=== PATIENT | male | born 1955 | race Two or more races ===

== ENCOUNTER 2018-03-11 10:11 | Outpatient (CLI) | payer OTHER | END 2018-03-11 10:33 | disposition home or self-care (01) | LOC: SONOGRAMA 10:11 | DX: E04.1 Nontoxic single thyroid nodule (principal) ==

== ENCOUNTER 2018-04-04 06:00 | Day surgery (SDC) | payer OTHER | END 2018-04-04 09:15 | disposition home or self-care (01) | LOC: AMB-ENDOS 06:00 | DX: K51.811 Other ulcerative colitis with rectal bleeding (principal); K64.1 Second degree hemorrhoids ==

== ENCOUNTER 2018-05-23 09:47 | Emergency (ER) | payer OTHER ==
[~2018-05-23] VITALS: Ht 170.2 cm; Wt 63.5 kg
[2018-05-23] MEDS ORDERED: CADUET 5 MG-201 EACH PO (10:12)
[2018-05-23] MEDS ORDERED: JANUVIA100 MG PO (10:12)
[2018-05-23] MEDS ORDERED: TAMS0.4C PO (10:12)
== END 2018-05-23 14:36 | disposition home or self-care (01) ==
LOC: ER 09:47
DX: I95.89 Other hypotension (principal)

== ENCOUNTER 2018-07-10 11:41 | Inpatient (IN) | payer OTHER ==
[~2018-07-10] VITALS: Ht 170.2 cm; Wt 57.6 kg
[~2018-07-10 11:41] MED LIST: CADUET 5 MG-201 EACH PO; JANUVIA100 MG PO; TAMS0.4C PO
[2018-07-18] MEDS ORDERED: PREDNISONE20 MG PO (08:01)
[2018-07-18] MEDS ORDERED: DELZICOL400 M1 PO (08:01)
[2018-07-18] MEDS ORDERED: PEPCID20 MG PO (08:02)
== END 2018-07-18 09:02 | disposition home or self-care (01) | DRG 387 ==
LOC: ER 11:41 → MEDJ 19:48
PROC: BW21ZZZ Computerized Tomography (CT Scan) of Abdomen and Pelvis (ICD-10-PCS; principal; 2018-07-10)
PROC: 30233N1 Transfusion of Nonautologous Red Blood Cells into Peripheral Vein, Percutaneous Approach (ICD-10-PCS; 2018-07-10)
PROC: BW30YZZ Magnetic Resonance Imaging (MRI) of Abdomen using Other Contrast (ICD-10-PCS; 2018-07-11)
PROC: BW30ZZZ Magnetic Resonance Imaging (MRI) of Abdomen (ICD-10-PCS; 2018-07-11)
DX: K51.811 Other ulcerative colitis with rectal bleeding (principal); D50.0 Iron deficiency anemia secondary to blood loss (chronic); E11.69 Type 2 diabetes mellitus with other specified complication; I10 Essential (primary) hypertension; K64.3 Fourth degree hemorrhoids
CPT/HCPCS: 74182

== ENCOUNTER 2018-09-19 13:30 | Day surgery (SDC) | payer OTHER ==
[~2018-09-19 13:30] MED LIST changes: +DELZICOL400 M1 PO; +PEPCID20 MG PO; +PREDNISONE20 MG PO
== END 2018-09-19 17:30 | disposition home or self-care (01) ==
LOC: AMB-ENDOS 13:30
DX: K52.89 Other specified noninfective gastroenteritis and colitis (principal)

== ENCOUNTER 2019-01-12 03:35 | Inpatient (IN) | payer OTHER ==
[~2019-01-12] VITALS: Ht 172.7 cm; Wt 63.5 kg
[2019-01-12] MEDS ORDERED: LANTUS SOL100 UNIT/1 (04:10)
[2019-01-12] MEDS ORDERED: HUMALOG100 UNIT/1 (04:10)
[2019-01-23] MEDS ORDERED: DELTASONE20 MG PO (17:53)
== END 2019-01-23 19:53 | disposition home or self-care (01) | DRG 386 ==
LOC: ER 03:35 → MEDI 07:57
PROVIDERS: ADMIT Student in an Organized Health Care Education/Training Program
PROC: BW21ZZZ Computerized Tomography (CT Scan) of Abdomen and Pelvis (ICD-10-PCS; 2019-01-12)
PROC: 30233N1 Transfusion of Nonautologous Red Blood Cells into Peripheral Vein, Percutaneous Approach (ICD-10-PCS; principal; 2019-01-13)
PROC: 02HV33Z Insertion of Infusion Device into Superior Vena Cava, Percutaneous Approach (ICD-10-PCS; 2019-01-15)
PROC: 4A12X4Z Monitoring of Cardiac Electrical Activity, External Approach (ICD-10-PCS; 2019-01-16)
DX: K51.811 Other ulcerative colitis with rectal bleeding (principal); E27.49 Other adrenocortical insufficiency; I95.89 Other hypotension; K64.2 Third degree hemorrhoids; E11.65 Type 2 diabetes mellitus with hyperglycemia; D64.89 Other specified anemias; D69.59 Other secondary thrombocytopenia; K57.30 Diverticulosis of large intestine without perforation or abscess without bleeding; I25.10 Atherosclerotic heart disease of native coronary artery without angina pectoris; I10 Essential (primary) hypertension; N40.0 Benign prostatic hyperplasia without lower urinary tract symptoms; Z79.52 Long term (current) use of systemic steroids; Z86.73 Personal history of transient ischemic attack (TIA), and cerebral infarction without residual deficits

== ENCOUNTER 2019-02-06 00:24 | Inpatient (IN) | payer OTHER ==
[~2019-02-06] VITALS: Ht 170.2 cm; Wt 63.5 kg
[~2019-02-06 00:24] MED LIST changes: +DELTASONE20 MG PO; +HUMALOG100 UNIT/1; +LANTUS SOL100 UNIT/1
--- NOTE | 2019-02-06 00:40 | NUR ---
SE RECIBE PTE MASCULINO ALERTA Y ORIENTADO X3,ACOMPANADO DE FAMILIAR,LLEGA EN AMBULANCIA REFIERE SANGRADO RECTAL ES NOTIFICADO A Y SHOSHANA REFIERE 1 EPISODIO DE SANGRADO.ES COLOCADO EN ALETA #6
--- NOTE | 2019-02-06 01:15 | NUR ---
SE ORIENTA PTE SOBRE TX MEDICO EL CUAL REFIERE ENTENDER.SE EXTRAEN MUESTRAS BAJO MEDIDAS ASEPTICAS,SE CANALIZA Y SE ADMINISTRA MEDICAMENTO [facility] ORDEN MEDICA.
--- NOTE | 2019-02-06 06:34 | NUR ---
SE NANCY [facility]NA ORDEN MEDICA TUBOS PILOTOS PARA 2 UNIDADES DE PRBC. SE EDUCA A PTE Y FAMILIAR. ESPOSA FIRMA CONSENTIMIENTO DE TRANSFUSION DE MANINDER. SE HABLA CON JONES DE BANCO DE MANINDER PARA NOTIFICARLE ORDEN DE TRANSFUNDIR 2 UNIDADES DE PRBC Y TUBOS PILOTOS A LAS 6:30AM.
[2019-02-06] MEDS ORDERED: HUMALOG KW100 UNIT/1 (08:28)
[2019-02-06] MEDS ORDERED: MESALAMINE800 MG PO (08:28)
[2019-02-06] MEDS ORDERED: NORVASC2.5 MG PO (08:29)
== END 2019-03-05 07:45 | disposition expired | DRG 329 ==
LOC: ER 00:24 → ICU 07:16 → ICU-2 07:16 → ICU 02-08 13:54 → SURH 02-20 16:57 → SURG 02-24 11:22 → MEDI 03-03 19:36 → ICU 03-04 13:44
PROVIDERS: Colon & Rectal Surgery; ADMIT Student in an Organized Health Care Education/Training Program
PROC: 02HV33Z Insertion of Infusion Device into Superior Vena Cava, Percutaneous Approach (ICD-10-PCS; 2019-02-06)
PROC: B246ZZZ Ultrasonography of Right and Left Heart (ICD-10-PCS; 2019-02-09)
PROC: 30233R1 Transfusion of Nonautologous Platelets into Peripheral Vein, Percutaneous Approach (ICD-10-PCS; 2019-02-10)
PROC: 0T9B70Z Drainage of Bladder with Drainage Device, Via Natural or Artificial Opening (ICD-10-PCS; 2019-02-12)
PROC: 0D1B4Z4 Bypass Ileum to Cutaneous, Percutaneous Endoscopic Approach (ICD-10-PCS; 2019-02-13)
PROC: 0DTF4ZZ Resection of Right Large Intestine, Percutaneous Endoscopic Approach (ICD-10-PCS; principal; 2019-02-13 10:00)
PROC: 30233N1 Transfusion of Nonautologous Red Blood Cells into Peripheral Vein, Percutaneous Approach (ICD-10-PCS; 2019-02-15)
PROC: BW28YZZ Computerized Tomography (CT Scan) of Head using Other Contrast (ICD-10-PCS; 2019-02-19)
PROC: B54NZZZ Ultrasonography of Left Upper Extremity Veins (ICD-10-PCS; 2019-02-19)
PROC: 4A12X4Z Monitoring of Cardiac Electrical Activity, External Approach (ICD-10-PCS; 2019-02-20)
PROC: 4A033R1 Measurement of Arterial Saturation, Peripheral, Percutaneous Approach (ICD-10-PCS; 2019-02-25)
PROC: BB24ZZZ Computerized Tomography (CT Scan) of Bilateral Lungs (ICD-10-PCS; 2019-02-26)
PROC: 3E0F7GC Introduction of Other Therapeutic Substance into Respiratory Tract, Via Natural or Artificial Opening (ICD-10-PCS; 2019-02-26)
PROC: 0BH17EZ Insertion of Endotracheal Airway into Trachea, Via Natural or Artificial Opening (ICD-10-PCS; 2019-03-04)
PROC: 5A1935Z Respiratory Ventilation, Less than 24 Consecutive Hours (ICD-10-PCS; 2019-03-04)
PROC: 0W9B30Z Drainage of Left Pleural Cavity with Drainage Device, Percutaneous Approach (ICD-10-PCS; 2019-03-04)
DX: K51.811 Other ulcerative colitis with rectal bleeding (principal); J18.1 Lobar pneumonia, unspecified organism; I50.31 Acute diastolic (congestive) heart failure; B37.1 Pulmonary candidiasis; J96.01 Acute respiratory failure with hypoxia; R65.21 Severe sepsis with septic shock; I48.1 Persistent atrial fibrillation; E27.3 Drug-induced adrenocortical insufficiency; M48.57XA Collapsed vertebra, not elsewhere classified, lumbosacral region, initial encounter for fracture; D61.818 Other pancytopenia; J90 Pleural effusion, not elsewhere classified; J98.11 Atelectasis; D62 Acute posthemorrhagic anemia; K94.19 Other complications of enterostomy; B37.41 Candidal cystitis and urethritis; E87.4 Mixed disorder of acid-base balance; E11.65 Type 2 diabetes mellitus with hyperglycemia; I25.118 Atherosclerotic heart disease of native coronary artery with other forms of angina pectoris; D69.59 Other secondary thrombocytopenia; E53.8 Deficiency of other specified B group vitamins; K63.89 Other specified diseases of intestine; K64.2 Third degree hemorrhoids; I95.89 Other hypotension; I08.1 Rheumatic disorders of both mitral and tricuspid valves; E11.39 Type 2 diabetes mellitus with other diabetic ophthalmic complication; N39.8 Other specified disorders of urinary system; I11.0 Hypertensive heart disease with heart failure; R60.1 Generalized edema; T38.0X5A Adverse effect of glucocorticoids and synthetic analogues, initial encounter; N40.0 Benign prostatic hyperplasia without lower urinary tract symptoms; E88.09 Other disorders of plasma-protein metabolism, not elsewhere classified; E86.0 Dehydration; N20.0 Calculus of kidney; E87.8 Other disorders of electrolyte and fluid balance, not elsewhere classified; F43.23 Adjustment disorder with mixed anxiety and depressed mood; R31.0 Gross hematuria; Z99.81 Dependence on supplemental oxygen; Z86.73 Personal history of transient ischemic attack (TIA), and cerebral infarction without residual deficits; Z79.4 Long term (current) use of insulin